=== PATIENT | female | born 2000 | race Caucasian/White ===

== ENCOUNTER 2019-07-04 14:04 | Emergency (ER) | payer MEDICAID, OTHER ==
[~2019-07-04] VITALS: Ht 160 cm; Wt 40.6 kg
[~2019-07-04 14:04] MED LIST: ACET500C5 PO; IBUP-1561 PO; NITR-58 PO
[2019-07-04 14:08] VITALS: BP 109/54; PULSE 85; RESP 18; Ht 160 cm; Wt 40.6 kg
--- NOTE | 2019-07-04 14:11 | EN ---
Date/Time of Note Date/Time of Note DATE: 07/04/19 TIME: 14:10 ER Progress Note [id number] female multiple complaints of headache, fatigue, nausea and vomiting for several months. No distress. Further study appropriate in ED 2. BRAN MURRAY MD Jul 04, 2019 14:11
--- NOTE | 2019-07-04 15:10 | ERD ---
ER Documentation Chief Complaint Chief Complaint headache, nausea and vomiting x 4 month HPI History and physical exam and plan of care discussion performed via parts interpreter services This is a 18-year-old female who presents emergency room with multiple complaints. Triage note says patient has headache, nausea, vomiting x4 months, however patient states today she has not had any vomiting, no headache today, no nausea today. She states that she fainted yesterday at work after getting headache, finding it hard to breathe, having numbness and tingling in body, 911 was called, she was transferred to [facility], but cannot give any details of the event including treatment that was done or any diagnoses. 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 She also states she received Depo-Provera injection 3 months ago, with spotting 1 month ago. States that she thinks her symptoms may have started around the time of her first Depo-Provera injection. Also has history of reactive airway when she has a URI. Headache: No visual deficits, no photophobia, no phonophobia, pain is throbbing at bilateral temples. Worsens with stress, improves with relaxation and Tylenol. ROS All systems reviewed and are negative except as per history of present illness. Medications Home Meds Active Scripts Ibuprofen* (Motrin*) 400 Mg Tab, 400 MG PO Q6, #30 TAB Prov:DANNI ADAMSON NP 07/04/19 Acetaminophen* (Tylophen*) 500 Mg Capsule, 2 CAP PO Q8H PRN for PAIN AND OR ELEVATED TEMP, #20 CAP Prov:DANNI ADAMSON NP 07/04/19 Nitrofurantoin Monohyd Macrocr* (Macrobid*) 100 Mg Capsr, 100 MG PO BID for 14 Days, #10 CAP Prov:DANNI ADAMSON NP 07/04/19 Allergies Allergies: Coded Allergies: No Known Allergy (Unverified , 07/04/19) PMhx/Soc Medical and Surgical Hx: pt denies Medical Hx Hx Alcohol Use: No Hx Substance Use: No Hx Tobacco Use: No Smoking Status: Never smoker FmHx Family History: No diabetes, No coronary disease, No other Physical Exam Vitals Vital Signs Date Temp Pulse Resp B/P (MAP) Pulse Ox O2 O2 Flow FiO2 Time Delivery Rate 07/04/19 98.0 16:49 07/04/19 97.8 85 18 109/54 100 14:08 (72) Physical Exam Const: No acute distress Head: Atraumatic Eyes: Normal Conjunctiva, PERRL ENT: Normal External Ears, Nose and Mouth. Pharynx pink, moist, no lesions, no exudate no petechiae. Neck: Full range of motion. No meningismus. No lymphadenopathy Resp: Clear to auscultation bilaterally, equal chest rise, no wheezing, no rales, no rhonchi Cardio: Regular rate and rhythm, no murmurs, S1/S2 Abd: Soft, non tender, non distended. Normal bowel sounds, no guarding, no rebound Skin: No petechiae or rashes Back: No midline or flank tenderness, no CVT Ext: No cyanosis, or edema Neur: Awake and alert, EOMI, CN II-XII intact, clear speech, steady gait, negative Romberg Psych: Normal Mood and Affect, denies SI or HI Result Diagram: 07/04/19 1514 07/04/19 1514 Results 24 hrs Laboratory Tests Test 07/04/19 15:11 07/04/19 15:14 Urine Test NEGATIVE White Blood Count 7.3 10^3/ul Red Blood Count 4.77 10^6/ul Hemoglobin 13.8 g/dl Hematocrit 42.8 % Mean Corpuscular Volume 89.7 fl Mean Corpuscular Hemoglobin 28.9 pg Mean Corpuscular Hemoglobin Concent 32.2 g/dl Red Cell Distribution Width 12.5 % Platelet Count 277 10^3/UL Mean Platelet Volume 9.3 fl Immature Granulocytes % 0.300 % Neutrophils % 62.2 % Lymphocytes % 24.0 % Monocytes % 8.8 % Eosinophils % 4.0 % Basophils % 0.7 % Nucleated Red Blood Cells % 0.0 /100WBC Immature Granulocytes # 0.020 10^3/ul Neutrophils # 4.5 10^3/ul Lymphocytes # 1.7 10^3/ul Monocytes # 0.6 10^3/ul Eosinophils # 0.3 10^3/ul Basophils # 0.1 10^3/ul Nucleated Red Blood Cells # 0.0 10^3/ul Urine Color YELLOW Urine Clarity SLIGHTLY CLOUDY Urine pH 6.0 Urine Specific [place] 1.017 Urine Ketones NEGATIVE mg/dL Urine Nitrite NEGATIVE mg/dL Urine Bilirubin NEGATIVE mg/dL Urine Urobilinogen NEGATIVE mg/dL Urine Leukocyte Esterase 1+ Natasha/ul Urine Microscopic RBC 3 /HPF Urine Microscopic WBC 27 /HPF Urine Squamous Epithelial Cells FEW /HPF Urine Bacteria FEW /HPF Urine Mucus FEW /HPF Urine Hemoglobin 3+ mg/dL Urine Glucose NEGATIVE mg/dL Urine Total Protein NEGATIVE mg/dl Sodium Level 143 mmol/L Potassium Level 3.6 mmol/L Chloride Level 108 mmol/L Carbon Dioxide Level 25 mmol/L Anion Gap 10 Blood Urea Nitrogen 8 mg/dl Creatinine 0.64 mg/dl Est Glomerular Filtrat Rate mL/min > 60 mL/min Glucose Level 77 mg/dl Calcium Level 9.3 mg/dl Procedures/MDM PROCEDURES/MDM EKG: Read by Dr. Jefferson, attending physician. EKG shows normal sinus rhythm at a rate of 68 bpm. No arrhythmias, acute ST elevations, possible early repolarization LAB INTERPRETATION: CBC: No leukocytosis, no anemia. Glucose 77. BMP: No electrolyte imbalance, diony kidney function UA: neg preg, +leuks, +WBC MDM: This 18 yo female patient presents with multiple complaints. Patient remains well-appearing throughout ED course. Patient reports headache that caused syncope yesterday after becoming very angry at work stating, "people can't do their job right." States her headaches start when she is stressed. She denies any visual disturbance, nausea, vomiting, and resolution of POLLARD with rest and Tylenol. Clinical and diagnostic exam not suggestive of infection, intracranial process, SAH, SDH, neoplasm, meningitis, encephalitis, aneurysm, thrombus, temporal arteritis, sinusitis. With her reported syncopal event yesterday, she denies CP or SOB at the time or since event. ECG not suggestive of acute ischemic event. Patient does not smoke, no family hx of sudden cardiac , pt does recieve Depoprovera injections, but has no other symptoms such as leg pain or exertional CP or dyspnea to suggest CAD, pulmonary embolus, aortic dissection, or other serious etiology. BMP reveals glucose of 77. Patient instructed on prevention of hypoglycemia and having balanced meals and snacks at least every 4-6 hours as well as increasing hydration. UA reveals urinary tract infection. There is low suspicion for pyelonephritis, vaginitis, STI, or interstitial cystitis due to absence of clinical findings that would support a diagnosis more serious than uncomplicated UTI. Long discussion had with patient regarding management of stress and need to increase self-care including exercise, joyful activities, and need to seek counseling. Patient does not have PMD. Patient provided with referrals for medical and mental health care. DISPOSITION and PLAN: RX: Ibuprofen, Tylenol, Nitrofurantoin The patient has been discharge home to follow-up with community physician. Departure Diagnosis: Primary Impression: Headache Headache type: tension-type Headache chronicity pattern: episodic headache Intractability: not intractable Qualified Codes: G44.219 - Episodic tension-type headache, not intractable Additional Impressions: Syncope Syncope type: vasovagal syncope Qualified Codes: R55 - Syncope and collapse Anxiety reaction Cystitis Condition: Stable DANNI ADAMSON NP Jul 04, 2019 15:10
== END 2019-07-04 16:51 | disposition home or self-care (01) ==
LOC: FTE 14:04
DX: R51 Headache (principal); R11.2 Nausea with vomiting, unspecified
CPT/HCPCS: 80048; 81001; 84703; 85025; 93005; Z7502